=== PATIENT | male | born 1955 | race Caucasian/White ===

== ENCOUNTER 2017-12-05 14:56 | Emergency (ER) | payer OTHER ==
[~2017-12-05 14:56] MED LIST: Sodium Chloride 0.9% 1,000 ML BAG ONE
[2017-12-05] MEDS ORDERED: Fentanyl 100 MCG/2 ML VIAL ONE (15:00)
[2017-12-05 15:22] LABS: INR-International Normal Ratio 1.1; PTT 26.4 SEC (22.9-36.1); Prothrombin Time 13.9 SEC (12.0-14.7)
[2017-12-05 15:26] LABS: Band 1 % (5-11); Hemoglobin 14.2 g/dL (14.0-18.0); Lymphocytes 1 % (21-51); MDiff Complete? YES; Mean Corpuscular HGB CONC 33.1 g/dL (32.0-36.0); Mean Corpuscular Hemoglobin 29.8 pg (27.0-31.0); Mean Corpuscular Volume 90.1 fl (80.0-94.0); Mean Platelet Volume 6.3 fL (7.4-10.4); Monocytes 1 % (0-10); Neutrophil 97 % (42-75); PLT Morphology Comment Appears Adequate; Platelet Count 291 thou/uL (130-400); RBC Distribution Width 12.7 % (11.5-14.5); Red Blood Cell (RBC) Count 4.77 mill/uL (4.70-6.10); White Blood Cell (WBC) Count 20.5 thou/uL (4.8-10.8)
[2017-12-05 15:30] LABS: ALT (SGPT) 28 U/L (8-55); AST (SGOT) 33 U/L (5-34); Albumin 4.4 g/dL (3.4-4.8); Alkaline Phosphatase 40 U/L (40-150); Anion Gap 18 mmol/L (10-20); BUN (Urea Nitrogen) 19 mg/dL (8.4-25.7); Bilirubin, Total 0.8 mg/dL (0.2-1.2); Calc. Creatinine Clearance 0 mL/min (70-130); Calcium 9.3 mg/dL (7.8-10.44); Carbon Dioxide 21 mmol/L (23-31); Chloride 106 mmol/L (98-107); Estimated GFR-MDRD 24; Glucose 162 mg/dL (80-115); Potassium 4.3 mmol/L (3.5-5.1); Protein, Total 7.4 g/dL (5.8-8.1); Sodium 141 mmol/L (136-145)
--- NOTE | 2017-12-05 15:42 | RAD ---
2 VIEWS LEFT FEMUR: Date: 12/05/17 HISTORY: Injury. Pain. COMPARISON: None. FINDINGS: With regard to the left femur, no fracture, cortical irregularity, or periosteal reaction. Left inferior and superior pubic rami fractures, as well as fracture lucency involving the acetabulum is noted. Please refer to pelvic radiograph report for further detail. IMPRESSION: 1. Left acetabular and superior/inferior pubic rami fractures as above. 2. No evidence of fracture with regards to the left femur. POS: [facility]
--- NOTE | 2017-12-05 15:49 | RAD ---
1 VIEW PELVIS: Date: 12/05/17 HISTORY: Injury. Pain. COMPARISON: None. FINDINGS: There is a fracture involving the left inferior and superior pubic rami. There are additional fractur es involving the left acetabulum. Remainder of the bony pelvis is unremarkable. IMPRESSION: Left pelvic fractures as described above. POS: [facility]
[2017-12-05] MEDS ORDERED: Adacel (T-DAP) 0.5 ML VIAL ONE (15:58)
== END 2017-12-05 16:13 | disposition short-term general hospital (02) ==
LOC: MADERS 14:56
DX: S32.512A Fracture of superior rim of left pubis, initial encounter for closed fracture (principal); S32.402A Unspecified fracture of left acetabulum, initial encounter for closed fracture; S32.592A Other specified fracture of left pubis, initial encounter for closed fracture; E78.5 Hyperlipidemia, unspecified; I10 Essential (primary) hypertension; V80.010A Animal-rider injured by fall from or being thrown from horse in noncollision accident, initial encounter
CPT/HCPCS: 36415; 72170; 80053; 85025; 85610; 85730; 90471; 90715; 96361; 96374; 96376; J3010; J7050